=== PATIENT | female | born 1975 | race Caucasian/White ===

== ENCOUNTER 2020-11-06 07:58 | Emergency (ER) | payer MEDICAID ==
[~2020-11-06] VITALS: Ht 162.6 cm; Wt 61.4 kg
[2020-11-06 08:05] VITALS: BP 156/84; Ht 162.6 cm; Wt 61.4 kg
[2020-11-06] MEDS ORDERED: ULTRAM50 MG PO (08:20)
== END 2020-11-06 08:35 | disposition home or self-care (01) ==
LOC: D.ER 07:58
DX: S60.562A Insect bite (nonvenomous) of left hand, initial encounter (principal); W57.XXXA Bitten or stung by nonvenomous insect and other nonvenomous arthropods, initial encounter; Y93.9 Activity, unspecified; Y92.9 Unspecified place or not applicable